=== PATIENT | male | born 2000 | race Hispanic/Latino ===

== ENCOUNTER 2022-12-23 13:58 | Emergency (ER) | payer SELFPAY ==
[~2022-12-23] VITALS: Ht 160 cm; Wt 81.6 kg
[2022-12-23] MEDS ORDERED: TETANUS/DIPHTHERIA TOX ADULT 0.5 ML SYR IM ONE (14:30)
[2022-12-23] MEDS ORDERED: AMOX TR-K CLV1 EAC2 PO (14:33)
== END 2022-12-23 16:20 | disposition home or self-care (01) ==
LOC: EDBD 13:58 → ER 14:20
DX: S61.552A Open bite of left wrist, initial encounter (principal); S00.01XA Abrasion of scalp, initial encounter; S80.811A Abrasion, right lower leg, initial encounter; W54.0XXA Bitten by dog, initial encounter; Y92.89 Other specified places as the place of occurrence of the external cause
CPT/HCPCS: 90471; 90714; 99284